=== PATIENT | male | born 1995 | race Caucasian/White ===

== ENCOUNTER 2023-03-05 09:58 | Outpatient (OUT) | payer OTHER, SELFPAY ==
--- NOTE | 2023-03-05 12:01 | CA_ITS ---
Patient: PARI ALEGRIA Exam Date: 03/05/2023 : 1995 Gender:M Ordering : LEROY APARICIO [facility] Admission #: [id number] Family : Order #: [id number] CLICK HERE TO VIEW EXAM ECHOCARDIOGRAM REPORT PROCEDURE: CA ECHO DOPPLER COMPLETE INDICATIONS: SYNCOPE AND COLLAPSE, smoker COMPARISON: None. DESCRIPTION: COMPLETE ECHOCARDIOGRAM Real-time transthoracic echocardiography with 2D, M-mode, spectral and color flow Doppler performed. QUALITY: Technical quality was good. LEFT VENTRICLE: Normal chamber size. Mild concentric left ventricular hypertrophy. LV EF: Global left ventricular systolic function is normal; visually estimated ejection fraction is 60 to 65%. No wall motion abnormalities. DIASTOLIC: Normal diastolic function. ATRIAL SEPTUM: Visually appears intact. LEFT ATRIUM: Normal chamber size. RIGHT ATRIUM: Normal chamber size. RIGHT VENTRICLE: Normal chamber size. Normal right ventricular systolic function. TRICUSPID VALVE: Normal mobility and thickness. No regurgitation. Unable to assess right-sided pressures due to lack of measurable tricuspid regurgitation. MITRAL VALVE: Normal mobility and thickness. No evidence of mitral valve stenosis. There is no mitral annular calcification. Trivial mitral regurgitation. AORTIC VALVE: Poorly seen; probably trileaflet. No visible sclerosis. Normal leaflet mobility. No evidence of aortic valve stenosis. No aortic regurgitation. AORTIC ROOT: Normal diameter and appearance. PULMONIC VALVE: Normal thickness and mobility. No stenosis. No regurgitation. PERICARDIUM: No evidence of pericardial effusion. IVC: Collapses with inspirations. IVC is normal in size. CONCLUSION: Global left ventricular systolic function is normal; visually estimated ejection fraction is 60 to 65%. Normal diastolic function. Right ventricle is normal in size and systolic function. No significant valvular abnormalities. Adult Echocardiography Procedure Report Left Ventricle LVEDD (3.7 - 5.6 cm): 4.10 cm LVESD (2.2 - 4.0 cm): 2.74 cm LVIVS thickness (0.6 - 1.2 cm): 1.18 cm LVPW thickness (0.5 - 1.0 cm): 1.10 cm e': 0.19 m/s E - e': 4.44 LVOT Max Gradient: 4.63 mm[Hg] LVOT Area (cm2): 1.08 m/s Peak Velocity (LVOT): 1.08 m/s Mean Velocity (LVOT): 0.78 m/s LVOT Diameter 2.33 cm Left Atrium LA Volume Index (2D A2C): 32.51 ml/m2 Left Atrium Systolic Dimension: 4.42 cm Mitral Valve MV E to A Ratio: 1.16 Mitral Valve A-Wave Peak Velocity: 0.73 m/s Mitral Valve E-Wave Peak Velocity: 0.85 m/s Right Ventricle Aorta AO Root Diam: 3.33 cm Aortic Valve AoV Area (Peak Juan): 3.44 cm2, 3.44 cm2 AoV Area (VTI): 3.23 cm2, 3.23 cm2 Peak Velocity(Antegrade Flow): 1.34 m/s Peak Gradient(Antegrade Flow): 7.17 mm[Hg] Mean Velocity(Antegrade Flow): 0.91 m/s Mean Gradient(Antegrade Flow): 3.86 mm[Hg] Velocity Time Integral: 30.11 cm Tricuspid Valve Peak Velocity (Regurgitant Flow): 2.21 m/s Pulmonic Valve Mean Gradient: 2.28 mm[Hg] Mean Velocity: 0.70 m/s Peak Velocity: 1.07 m/s, 1.29 m/s Peak Gradient: 6.65 mm[Hg], 4.60 mm[Hg] Right Atrium Right Atrium Systolic Pressure: 48.71 ml, 48.71 ml Dictated by: Chasity Meneses M.D. on 03/05/2023 at 14:34 Approved by: Chasity Meneses M.D. on 03/05/2023 at 14:37
== END 2023-03-05 09:59 | disposition home or self-care (01) ==
LOC: CARD 09:58
PROVIDERS: PCP Family Medicine; Visit Provider Nurse Practitioner Family
DX: R55 Syncope and collapse (principal)
CPT/HCPCS: 93306

== ENCOUNTER 2023-06-15 13:28 | Emergency (ER) | payer OTHER, SELFPAY ==
[2023-06-15 13:30] VITALS: BP 157/86; PULSE 91; RESP 20; TEMP 36.6; O2SAT 99; BMI 35.4
--- OUTSIDE RECORDS SUMMARY | 2023-06-15 13:37 | XMS_ITS | CCD ---
Author Name Unknown Address [address] [place] [address] Organization [facility] Care Team Providers Care Material Processor Name Role Phone Jose Parker Unavailable Unavailable Becca Hinson Unavailable Unavailable [place], Samra Lulu Unavailable Unavai lable [place], Samra Lulu Unavailable Unavai lable Becca Hinson Unavailable Unavailable [place], Samra Lulu Unavailable Unavai lable Becca Hinson Unavailable Unavailable Becca Hinson Unavailable Unavailable [place], Samra Lulu Unavailable Unavai lable [place], Samra Lulu Unavailable Unavai lable [place], Samra Lulu Unavailable Unavai lable [place], Samra Lulu Unavailable Unavai lable UNKNOWN, PCP Unavailable Unavailable Becca Hinson Unavailable Unavailable [place], Jessica Unavailable Unavailable UNKNOWN, PCP Unavailable Unavailable Becca Hinson Unavailable Unavailable [place], Samra Lulu Unavailable Unavai lable Becca Hinson Unavailable Unavailable [place], Samra Lulu Unavailable Unavai lable Becca Hinson Unavailable Unavailable UNKNOWN, PCP Unavailable Unavailable Becca Hinson Unavailable Unavailable [place], Samra Lulu Unavailable Unavai lable Shabbir Bright Unavailable DR REGAN LR V Consulting Unavailable KEVIN AYALA Admitting Unavailable KEVIN AYALA Attending Unavailable DR BECCA GALAVIZ Primary Care Unavailable KEVIN AYALA Consulting Unavailable Medications Current Medications Medication Drug Class(es) Dates Sig (Normalized) Sig (Original) ibuprofen 800 mg oral tablet (2 sources) Nonsteroidal Anti-inflammatory Drug take 1 tablet by mouth three times daily at mealtime as needed Ibuprofen 800 MG 1 tablet with food or milk as needed Orally Three times a day Active Problems Active Problems Problem Classification Problem Date Documented Date Episodic/Chronic Asthma (1 source) Unspecified asthma, uncomplicated; Translations: [UNSPECIFIED ASTHMA UNCOMPLICATED] Onset: 08-21-2021 Chronic Esophageal disorders (3 sources) Gastroesophageal reflux disease; Translations: [GERD [Gastroesophageal reflux disease]] Onset: 08-21-2021 Chronic Medical examination/evaluati on (1 source) Encounter for examination of potential donor of organ and tissue; Translations: [Encounter for exam of potential donor of organ and tissue] Onset: 09-10-2017 Episodic Unclassified (2 sources) 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) Onset: 10-09-2017 Unclassified (2 sources) Encounter for exam of potential donor of organ and tissue / Z00.5(ICD-10) Onset: 09-10-2017 Past or Other Problems Problem Classification Problem Date Documented Da te Episodic/Chronic E Codes: Fall (1 source) Fall on same level from slipping, tripping and stumbling without subsequent striking against object, initial encounter; Translations: [FALL SAME LVL SLIP NO STRK OBJ INIT] Onset: 08-21-2021 Episodic Fracture of upper limb (3 sources) Other fractures of lower end of right radius, subsequent encounter for closed fracture with routine healing; Translations: [Nondisplaced fracture of pisiform, right wrist, initial encounter for closed fracture] Onset: 08-21-2021 Resolved: 09-25-2021 Episodic Other aftercare (1 source) Other halfway (current) drug therapy; Translations: [OTH [facility]CI CURRENT DRUG THERAPY] Onset: 08-21-2021 Episodic Other injuries and conditions due to external causes (3 sources) Unspecified injury of right wrist, hand and finger(s), initial encounter; Translations: [UNS INJ RT WRIST HAND FINGERS INIT] Onset: 08-20-2021 Episodic Residual codes; unclassified (1 source) Acquired absence of other specified parts of digestive tract; Translations: [ACQ ABSENCE OTH PART DIGESTV TRACT] Onset: 08-21-2021 Episodic Unclassified (1 source) Kidney donor; 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] Onset: 10-09-2017 Results Test Name Value Interpretation Reference Range Facil ity XR wrist RT 2Von 10-29-2021 XR wrist RT 2V [facility] Main [address] [address] XRay Report Signed Patient: Pari Alegria MR#: [id number] 99 : 1995 Acct:[id number] Age/Sex: 26 / M ADM Date: 10/29/21 Loc: [facility] Room: Type: REG CLI Attending Dr: Shabbir Bright MD Copies to: Shabbir Bright MD Ordering Provider: Shabbir Bright MD Date of Service: 10/29/21 XR/XR wrist RT 2V: Other closed fracture of distal end of right radius with rou XR wrist RT 2V 10/29/2021 10:26 AM SIGNS AND SYMPTOMS: Status post distal radius fracture, follow-up PROTOCOL: Frontal and lateral radiographs of the right wrist COMPARISON: 09/25/2021 FINDINGS: The radiocarpal joint and carpal rows are preserved. There is no acute displaced fracture. No dislocation. No significant soft tissue swelling. XR/XR wrist RT 2V IMPRESSION: No acute bony injury. Impression dictated by: Taiwo Multani M.D.10/29/2021 12:07 PM Dictation Location: [place] [address] Transcribed By: [facility] 10/29/21 1207 Dictated By: Taiwo Multani II, MD 10/29/21 1205 Signed By: 10/29/21 1207 [facility] XR wrist RT 2Von 09-25-2021 XR wrist RT 2V [facility] Main [place] [id number] XRay Report Signed Patient: Pari Alegria MR#: [id number] 99 : 1995 Acct:[id number] Age/Sex: 26 / M ADM Date: 09/25/21 Loc: [facility] Room: Type: REG CLI Attending Dr: Shabbir Bright MD Ordering Provider: Shabbir Bright MD Date of Service: 09/25/21 XR/XR wrist RT 2V: Other closed fracture of distal end of right radius with rou Copies to: Shabbir Bright MD RIGHT WRIST - 2 views CLINICAL HISTORY: Follow-up right distal radius fracture COMPARISON: Right wrist 09/04/2021 FINDINGS: No focal soft tissue abnormality. No definite acute bony process is seen. Carpal bones appear unremarkable. XR/XR wrist RT 2V IMPRESSION: NO DEFINITE ACUTE BONY PROCESS IS SEEN. Impression dictated by: Good Bennett Jr., D.OServando09/25/2021 11:49 AM Dictation Location: RADIO-PC-11 Transcribed By: [facility] 09/25/21 1149 Dictated By: Good Bennett Jr, DO 09/25/21 1146 Signed By: 09/25/21 1149 [facility] XR wrist RT 2Von 09-04-2021 XR wrist RT 2V [facility] [place] [address] XRay Report Signed Patient: Pari Alegria MR#: [id number] 99 : 1995 Acct:[id number] Age/Sex: 25 / M ADM Date: 09/04/21 Loc: [facility] Room: Type: [facility] Attending Dr: Shabbir Bright MD Ordering Provider: Shabbir Bright MD Date of Service: 09/04/21 XR/XR wrist RT 2V: Other closed fracture of distal end of right radius with rou Copies to: Shabbir Bright MD XR wrist RT 2V 09/04/2021 8:10 AM SIGNS AND SYMPTOMS: Other closed fracture of distal end of right radius, follow-up PROTOCOL: Frontal and lateral radiographs of the right wrist COMPARISON: 08/20/2021 FINDINGS: The radiocarpal joint and carpal rows are preserved. There is no evidence of fracture or dislocation. No significant soft tissue swelling. XR/XR wrist RT 2V IMPRESSION: No acute or healing bony injuries are noted. Impression dictated by: Taiwo Multani M.D.09/04/2021 8:59 AM Dictation Location: RADIO-PC-13 Transcribed By: [facility] 09/04/21 0859 Dictated By: Taiwo Multani II, MD 09/04/21 0857 Signed By: 09/04/21 0859 [facility] WEST NILE ABS- IGG, IGMon WEST NILE AB IGG <1.30 Normal [facility] Comment on above: Performed By: #### A APRIL ####[facility] [place] [address] WEST NILE AB IGM <0.90 Normal [facility] Comment on above: Result Comment: REFE RENCE RANGE: IgG <1.30 IgM <0.90.INTERPRETIVE CRITERIA IgG: <1.30 Antibody not detected 1.30 - 1.49 Equivocal >=1.50 Antibody detected. IgM: <0.90 Antibody not detected 0.90 - 1.10 Equivocal >1.10 Antibody detected.West Nile virus (WNV) IgM is usually detectablein serum specimens from WNV-infected patients atthe time of clinical presentation. Because serumIgM antibody may persist for more than a year insome patients, its presence may indicate WNVinfection in the previous year and be unrelatedto the current clinical presentation.West Nile IgG antibodies are often not detectableuntil day 4 or 5 of illness. In a patient who isIgM positive but IgG negative, a convalescentphase specimen obtained 7 to 14 days after theinitial specimen should be tested to document IgGseroconversion.Antibodies induced by other flavivirus infections(e.g. Dengue virus, [place]ominee encephalitis virus)may show cross-reactivity with WNV. Performed By: #### A APRIL ####[facility] [id number] QUANTIFERON TB GOLDon 2017 MITOGEN NIL 5.97 IU/mL Normal [facility] Comment on above: Performed By: #### A APRIL ####[facility] [place] [address] NIL 0.48 IU/mL Normal [facility] Comment on above: Performed By: #### A APRIL ####[facility] [id number] QUANTIFERON TB GOLD Negative Normal Negative [facility] Comment on above: Result Comment: Nega tive test result. M. tuberculosis complexinfection unlikely. Performed By: #### A APRIL ####[facility] [id number] TB ANTIGEN NIL <0.00 Normal [facility] Comment on above: Result Comment: The Nil tube value is used to determine if the patienthas a preexisting immune response which could cause afalse-positive reading on the test.In order for a test to be valid, the Nil tube must havea value of <=8.0 IU/mL.The Mitogen control tube is used to assure the patienthas a healthy immune status and also serves as acontrol for correct blood handling and incubation.It is used to detect false-negative readings. Themitogen tube must have a gamma interferon value>= 0.5 IU/mL higher than the value of the Nil tube.The TB Antigen tube is coated with the M tuberculosisspecific antigens. For a test to be considered positivethe TB antigen tube value minus the Nil tube value mustbe >=0.35 IU/mL.Data on the performance of the test in childrenyounger than 5 years of age are limited, and the [facility]ises that caution is warranted when using the assayin children aged <5 years (MMWR 2009; 59 (RR-05):1-25).For additional information, please refer to:http://education.HashTip.Wickr/faq/QFT(This link is being provided for informational/educational purposes only). Performed By: #### A APRIL ####[facility] [place] [address] DONOR HEPATITIS B SURFACE AG on 10-10-2017 DONOR HEPATITIS B SURFACE AG Negative Normal Negative [facility] Comment on above: Result Comment: Test performed with Portillo Prism HBsAg kit. Performed By: #### F EVA ####[facility] [address] DONOR HEPATITIS C ABon 10-10 DONOR HEPATITIS C AB Negative Normal Negative [facility] Comment on above: Result Comment: Test performed with Portillo Prism HCV kit. Performed By: #### A APRIL ####[facility] [address] BA CTA ABDOMEN PELVIS WITH C ONT INCL NON CONT IMAGE W POST PROCon 10-09-2017 BA CTA ABDOMEN PELVIS WITH CONT INCL NON CONT IMAGE W POST PROC Name: PARI ALEGRIA STUDY:CTA ABDOMEN PELVIS WITH CONT INCL NON CONT IMAGE W POST PROC;10/09/2017 9:31 am INDICATION:Signs/Sympt oms: Kidney donor evaluation. COMPARISON:None. ORDERING CLINICIAN:SAMRA FLEMING TECHNIQUE:Noncontrast axial images were acquired through the abdomen andpelvis. Contiguous axial CT images were acquired through the abdomenand pelvis following the administration of 90 mL Optiray 350intravenous contrast. Sagittal and coronal images werereconstructed. Maximum intensity projection and three dimensionalimages were reconstructed. DOSE: 4,067 mGy x cm FINDINGS: CTA:Suprarenal Aorta: The suprarenal aorta is patent and normal incaliber. The celiac artery and superior mesenteric artery patent withnormal origin, caliber, and branching. Right Renal artery: Single right renal artery is widely patent andnormal in caliber. Left Renal artery: Single left renal artery is widely patent andnormal in caliber. Infrarenal Aorta: The infrarenal aorta is patent and normal incaliber. The inferior mesenteric artery is patent and unremarkable.The bilateral common iliac, internal and external iliac, commonfemoral, and origins of the superficial and profunda femoral arteriesare patent and without stenosis. CT ABDOMEN: The lung bases are clear. There is no pleural effusion. The liver is normal in size and appearance. No focal hepatic lesionsare identified. The patient is status post cholecystectomy. There isno intra or extrahepatic biliary dilatation. The spleen pancreas andbilateral adrenal glands are within normal limits. The kidneysenhance symmetrically on the arterial phase and delayed images. Thereis early excretion of contrast into the renal collecting systemsbilaterally on the delayed images. No radiopaque stones orhydronephrosis. The right kidney measures up to 10.6 cm in length onsagittal image 86 and the left kidney measures up to 10.7 cm inlength on sagittal image 152. The stomach, small bowel, and colon arenormal caliber and without evidence of wall thickening orabnormality. There is no free air free fluid within the abdomen.There are scattered small mesenteric lymph nodes, none of which arepathologically enlarged by size criteria. There is no free air freefluid within the abdomen. CT PELVIS: The urinary bladder is normally distended andunremarkable. The prostate and seminal vesicles are unremarkable.There is no pelvic free fluid. No pathologic pelvic or inguinallymphadenopath y. IMPRESSION:1. Normal CTA of the abdomen and pelvis. Single bilateral renalarteries are widely patent.2. Normal CT evaluation of the bilateral kidneys. The right kidneymeasures up to 10.6 cm in length and the left kidney measures up to10.7 cm in length.Electronically signed by: CORRIE SENIOR MD Normal [facility] ABO/RH GROUP TESTon 10-09-19 18 ABO TYPE O Normal [facility] Comment on above: Performed By: #### F LAUT ####[facility] [address] RH TYPE Positive Normal [facility] Comment on above: Performed By: #### F LAUT ####[facility] [place] [address] CBC AND DIFFERENTIALon 10-08 % AUTOMATED IMMATURE GRAN 0.4 % Normal 0.0 - 0.9 [facility] Comment on above: Result Comment: Perc ent differential counts (%) should be interpreted in the context of the absolute cell counts (cells/L). Performed By: #### C BCDF ####[facility] [place] [address] % NEUTROPHIL 41.1 % Normal 40.0 - 80.0 [facility] Comment on above: Performed By: #### C BCDF ####[facility] [place] [address] Basophils/100 WBC Auto (Bld) 0.04 x10E9/L Normal 0.00 - 0.10 [facility] Comment on above: Performed By: #### C BCDF ####[facility] [place] [address] Basophils/100 WBC Auto (Bld) 0.5 % Normal 0.0 - 2.0 [facility] Comment on above: Performed By: #### C BCDF ####[facility] [place] [address] Eosinophils 0.45 10*3/uL Normal 0.00 - 0.70 [facility] Comment on above: Performed By: #### C BCDF ####[facility] [place] [address] Eosinophils/100 leukocytes 6.0 % Normal 0.0 - 6.0 [facility] Comment on above: Performed By: #### C BCDF ####[facility] [place] [address] Erythrocyte distribution width Auto Ratio (RBC) 12.0 % Normal 11.5 - 14.5 [facility] Comment on above: Performed By: #### C BCDF ####[facility] [place] [address] Erythrocytes (RBC) 5.35 x10E12/L Normal 4.50 - 5.90 [facility] Comment on above: Performed By: #### C BCDF ####[facility] [place] [address] Hematocrit (HCT) 48.6 % Normal 41.0 - 52.0 [facility] Comment on above: Performed By: #### C BCDF ####[facility] [place] [address] Hemoglobin mass conc (Bld) 16.1 g/dL Normal 13.5 - 17.5 [facility] Comment on above: Performed By: #### C BCDF ####[facility] [place] [address] Lymphocytes 3.21 10*3/uL Normal 1.20 - 4.80 [facility] Comment on above: Performed By: #### C BCDF ####[facility] [place] [address] Lymphocytes/100 leukocytes 42.7 % Normal 13.0 - 44.0 [facility] Comment on above: Performed By: #### C BCDF ####[facility] [place] [address] MCHC mass conc (RBC) 33.1 g/dL Normal 32.0 - 36.0 [facility] Comment on above: Performed By: #### C BCDF ####[facility] [place] [address] MCV 91 fL Normal 80 - 100 [facility] Comment on above: Performed By: #### C BCDF ####[facility] [place] [address] Monocytes 0.70 10*3/uL Normal 0.10 - 1.00 [facility] Comment on above: Performed By: #### C BCDF ####[facility] [place] [address] Monocytes/100 leukocytes 9.3 % Normal 2.0 - 10.0 [facility] Comment on above: Performed By: #### C BCDF ####[facility] [place] [address] Neutrophils 3.08 10*3/uL Normal 1.20 - 7.70 [facility] Comment on above: Performed By: #### C BCDF ####[facility] [place] [address] Nucleated erythrocytes 0.0 /100 WBC Normal 0.0-0.0 [facility] Comment on above: Performed By: #### C BCDF ####[facility] [address] Platelets 221 10*3/uL Normal 150 - 450 [facility] Comment on above: Performed By: #### C BCDF ####[facility] [place] [address] WBC (Leukocytes) 7.5 10*3/uL Normal 4.4 - 11.3 [facility] Comment on above: Performed By: #### C BCDF ####[facility] [place] [address] CMV IGG AND IGM ABon 05-23-2 018 CMV IGM AB Negative Normal NEGATIVE [facility] Comment on above: Result Comment: RESU LTS WERE OBTAINED WITH THE IMMULITE 2000 CMV IGM CHEMILUMINESCENT METHOD AND CANNOT BE INTERCHANGED WITH OTHER TESTING METHODS. Immunodeficiency may impair a CMV specific IgM response. Samples collected early in CMV infection may not demonstrate IgM sera conversion. Performed By: #### F EVA ####[facility] [place] [address] CMV IGG AB 8.6 INDEX Abnormal [facility] Comment on above: Result Comment: RESU LTS WERE OBTAINED WITH THE IMMULITECMV IGG CHEMILUMINESCENT METHOD.THE MAGNITUDE OF THE MEASURED RESULT, ABOVETHE CUT-OFF, IS NOT INDICATIVE OF THETOTAL AMOUNT OF ANTIBODY PRESENT.NEGATIVE: < 0.9EQUIVOCAL: 0.9 - 1.0POSITIVE: >=1.1 Performed By: #### F EVA ####[facility] [place] [address] COAGULATION SCREENon 018 aPTT 30 s Normal 25 - 36 [facility] Comment on above: Result Comment: THE APTT IS NO LONGER USED FOR MONITORING UNFRACTIONATED HEPARIN THERAPY. FOR MONITORING HEPARIN THERAPY, USE THE HEPARIN ASSAY. Performed By: #### D N2SYLVESTER ####[facility] [place] [address] INR Coag RelTime (PPP) 1.0 {INR} Normal 0.9 - 1.1 [facility] Comment on above: Performed By: #### D N2SYLVESTER ####[facility] [place] [address] Prothrombin time (PT) Coag time (PPP) 11.1 s Normal 9.8 - 12.7 [facility] Comment on above: Performed By: #### D N2LR ####[facility] [place] [address] COMPREHENSIVE PANELon 2017 Alanine aminotransferase (ALT) 49 U/L Normal 10 - 52 [facility] Comment on above: Result Comment: Lanette ents treated with Sulfasalazine may generate falsely decreased results for ALT. Performed By: #### D N2LR ####[facility] [place] [address] Albumin 5.1 g/dL High 3.4 - 5.0 [facility] Comment on above: Performed By: #### D N2LR ####[facility] [place] [address] Alkaline phosphatase (ALP) 85 U/L Normal 33 - 120 [facility] Comment on above: Performed By: #### D N2LR ####[facility] [place] [address] Anion gap 14 mmol/L Normal 10 - 20 [facility] Comment on above: Performed By: #### D N2LR ####[facility] [place] [address] Aspartate aminotransferase (AST) 25 U/L Normal 9 - 39 [facility] Comment on above: Performed By: #### D N2LR ####[facility] [place] [address] Bicarbonate (HCO3) 27 mmol/L Normal 21 - 32 [facility] Comment on above: Performed By: #### D N2LR ####[facility] [address] Bilirubin (total) 0.8 mg/dL Normal 0.0 - 1.2 [facility] Comment on above: Performed By: #### D N2LR ####[facility] [place] [address] Calcium 10.1 mg/dL Normal 8.6 - 10.6 [facility] Comment on above: Performed By: #### D N2LR ####[facility] [place] [address] Chloride 101 mmol/L Normal 98 - 107 [facility] Comment on above: Performed By: #### D N2LR ####[facility] [address] Creatinine 0.83 mg/dL Normal 0.50 - 1.30 [facility] Comment on above: Performed By: #### D N2LR ####[facility] [place] [address] eGFR (non-black) mL/min/{1.73_m2} Normal >60 [facility] Comment on above: Result Comment: CALC ULATIONS OF ESTIMATED GFR ARE PERFORMED USING THE MDRD STUDY EQUATION FOR THE IDMS-TRACEABLE CREATININE METHODS. CLIN CHEM 2007;53:766-72 Performed By: #### D N2LR ####[facility] [place] [address] Glucose mass conc 100 mg/dL High 74 - 99 [facility] Comment on above: Performed By: #### D N2LR ####[facility] [place] [address] Potassium molar conc 4.2 mmol/L Normal 3.5 - 5.3 [facility] Comment on above: Performed By: #### D N2LR ####[facility] [address] Protein 7.5 g/dL Normal 6.4 - 8.2 [facility] Comment on above: Performed By: #### D N2LR ####[facility] [place] [address] Sodium 138 mmol/L Normal 136 - 145 [facility] Comment on above: Performed By: #### D N2LR ####[facility] [place] [address] Urea nitrogen 16 mg/dL Normal 6 - 23 [facility] Comment on above: Performed By: #### D N2LR ####[facility] [place] [address] CREAT CLEARANCEon 10-08-2017 Creatinine 182 mL/min High 70 - 135 [facility] Comment on above: Performed By: #### F LAUT ####[facility] [place] [address] CREATININE,URINE 77.9 mg/dL Normal [facility] Comment on above: Performed By: #### F LAUT ####[facility] [place] [address] URINE VOLUME 2723 mL Normal [facility] Comment on above: Performed By: #### F LAUT ####[facility] [id number] Creatinine 0.81 mg/dL Normal 0.50 - 1.30 [facility] Comment on above: Performed By: #### F LAUT ####[facility] [address] eGFR (non-black) mL/min/{1.73_m2} Normal >60 [facility] Comment on above: Result Comment: CALC ULATIONS OF ESTIMATED GFR ARE PERFORMED USING THE MDRD STUDY EQUATION FOR THE IDMS-TRACEABLE CREATININE METHODS. CLIN CHEM 2007;53:766-72 Performed By: #### F LAUT ####[facility] [place] [address] COLLECTION PERIOD 24 hr Normal [facility] [place] Comment on above: Performed By: #### F LAUT ####[place] [id number] [id number] DRUG SCREEN,URINEon 10-09-19 18 AMPHETAMINE SCREEN,U Negative Normal NEGATIVE [facility] Comment on above: Result Comment: CUTO FF LEVEL: 500 NG/ML Cross-reactivity has been reported with high concentrations of the following drugs: buproprion, chloroquine, chlorpromazine, ephedrine, mephentermine, fenfluramine, phentermine, phenylpropanolamine, pseudoephedrine, and propranolol. Performed By: #### D N2LR ####[facility] [place] [address] BARBITURATES SCREEN,U Negative Normal NEGATIVE [facility] Comment on above: Result Comment: CUTO FF LEVEL: 200 NG/ML Performed By: #### D N2LR ####[facility] [address] BENZODIAZEPINES SCREEN,U Negative Normal NEGATIVE [facility] Comment on above: Result Comment: CUTO FF LEVEL: 200 NG/ML Performed By: #### D N2LR ####[facility] [id number] CANNABINOIDS SCREEN,U Positive Abnormal NEGATIVE [facility] Comment on above: Result Comment: CUTO FF LEVEL: 50 NG/ML Performed By: #### D N2LR ####[facility] [place] [address] COCAINE METABOLITE SCREEN,U Negative Normal NEGATIVE [facility] Comment on above: Result Comment: CUTO FF LEVEL: 150 NG/ML Performed By: #### D N2LR ####[facility] [place] [address] DRUG SCREEN COMMENT SEE BELOW Normal [facility] Comment on above: Result Comment: Drug screen results are presumptive and should not be used to assesscompliance with prescribed medication. Contact the performing [facility] to add-on definitive confirmatory testing if clinicallyindicated..Toxicology screening results are reported qualitatively. The concentrationmust be greater than or equal to the cutoff to be reported as positive. Theconcentration at which the screening test can detect an individual drug ormetabolite varies. The absence of expected drug(s) and/or drug metabolite(s)may indicate non-compliance, inappropriate timing of specimen collectionrelative to drug administration, poor drug absorption, diluted/adulteratedurine, or limitations of testing. For medical purposes only; not valid forforensic use..Interpretive questions should be directed to the laboratory medicaldirectors. Performed By: #### D N2LR ####[facility] [place] [address] METHADONE SCREEN,U Negative Normal NEGATIVE [facility] Comment on above: Result Comment: CUTO FF LEVEL: 150 NG/ML The metabolite C-safhk-yhrditzohmxobg (LAAM) is not detected by this method in concentrations that would be found in the urine of patients on LAAM therapy. Performed By: #### D N2LR ####[facility] [place] [address] OPIATES SCREEN,U Negative Normal NEGATIVE [facility] Comment on above: Result Comment: CUTO FF LEVEL: 300 NG/ML The opiate screen does not detect fentanyl, meperidine, or tramadol. Oxycodone is not consistently detected (refer to Oxycodone Screen, Urine result). Performed By: #### D N2LR ####[facility] [address] OXYCODONE SCREEN,U Negative Normal NEGATIVE [facility] Comment on above: Result Comment: CUTO FF LEVEL: 100 NG/ML This test will accurately detect both oxycodone and oxymorphone. Performed By: #### D N2LR ####[facility] [address] PCP SCREEN,U Negative Normal NEGATIVE [facility] Comment on above: Result Comment: CUTO FF LEVEL: 25 NG/ML Cross-reactivity has been reported with dextromethorphan. Performed By: #### D N2LR ####[facility] [id number] EBV PANELon 10-08-2017 VCA IGM ANTIBODY Negative Normal NEGATIVE [facility] Comment on above: Performed By: #### F LAUT ####[facility] [place] [address] EBV EA-D IGG ANTIBODY Negative Normal NEGATIVE [facility] Comment on above: Performed By: #### F LAUT ####[facility] [id number] EBV INTERPRETATION SEE BELOW Normal [facility] Comment on above: Result Comment: . EB V INTERPRETATION CHART. VCA-IGG VCA-IGM NA-IGG EA-IGG. PRIMARY ACUTE +/- +/- - +/-LATE ACUTE + +/- +/- +/-RECOVERING + - - +PREVIOUS INFECTION + - +/- - Performed By: #### F LAUT ####[facility] [address] EBV NA-1 IGG ANTIBODY Positive Abnormal NEGATIVE [facility] Comment on above: Performed By: #### F LAUT ####[facility] [address] VCA IGG ANTIBODY Positive Abnormal NEGATIVE [facility] Comment on above: Performed By: #### F LAUT ####[facility] [address] GLUCOSE,FASTINGon 10-08-2017 Glucose mass conc 99 mg/dL Normal 74 - 99 [facility] [place] Comment on above: Result Comment: INCR EASED RISK FOR DIABETES 100-125 mg/dL DIAGNOSTIC OF DIABETES >=126 mg/dL Diagnosis of diabetes mellitus requires confirmation of an abnormal result by repeat testing. [place] [employer], Diabetes Care; 33(Supp 1)May 2009. Performed By: #### G LUCF ####[facility] [address] HEMOGLOBIN A1Con 10-08-2017 Glucose mass conc 94 mg/dL Normal [facility] [place] Comment on above: Performed By: #### F EVA ####[facility] [address] Hemoglobin A1c/Hemoglobin.total mass fraction (Bld) 4.9 % Normal [facility] Comment on above: Result Comment: Diag nosis of Diabetes-Adults Non-Diabetic: < or = 5.6% Increased risk for developing diabetes: 5.7-6.4% Diagnostic of diabetes: > or = 6.5%. Monitoring of Diabetes Age (y) Therapeutic Goal (%) Adults: >18 <7.0 Pediatrics: 13-18 <7.5 7-12 <8.0 0- 6 7.5-8.5 [place] [employer]. Diabetes Care 33(S1), May 2009. Performed By: #### F EVA ####[facility] [address] HEPATITIS B CORE AB-TOTALon 10-08-2017 HEP. B CORE AB-TOTAL NONREACTIVE Normal NONREACTIVE [facility] Comment on above: Result Comment: Lanette ents receiving more than 5 mg/day of biotin may have interference in test results. A sample should be taken no sooner than eight hours after previous dose. Contact [phone] for additional information. Performed By: #### D N2LR ####[facility] [place] [address] Lab Spec[address] Source Normal [facility] Comment on above: Performed By: #### D N2LR ####[facility] [place] [address] HEPATITIS B SURF ABon 2017 HEP B SURF AB 5.3 mIU/mL Normal <10 [facility] Comment on above: Result Comment: INTE RPRETIVE CRITERIA:<10 mIU/mL....NONREACTIVE>=10 mIU/mL...REACTIVE. Patients receiving more than 5 mg/day of biotin may have interference in test results. A sample should be taken no sooner than eight hours after previous dose. Contact [phone] for additional information. Performed By: #### D N2LR ####[facility] [place] [address] LIPID PANEL (CORONARY RISK 2 )on 10-08-2017 Cholesterol 188 mg/dL Normal 0 - 199 [facility] Comment on above: Result Comment: . AG E DESIRABLE BORDERLINE HIGH HIGH 0-19 Y 0 - 169 170 - 199 >/= 200 20-24 Y 0 - 189 190 - 224 >/= 225 >24 Y 0 - 199 200 - 239 >/= 240 All ranges are based on fasting samples. Specific therapeutic targets will vary based on patient-specific cardiac risk.. Pediatric guidelines reference:Pediatrics 2011, 128(S5). Adult guidelines reference: NCEP ATPIII Guidelines, MEHDI 2001, 258:2486-97. Venipuncture immediately after or during the administration of Metamizole may lead to falsely low results. Testing should be performed immediately prior to Metamizole dosing. Performed By: #### D N2LR ####[facility] [place] [address] Cholesterol in VLDL mass conc 27 mg/dL Normal 0 - 40 [facility] Comment on above: Performed By: #### D N2LR ####[facility] [place] [address] Cholesterol to HDL Ratio 3.4 {ratio} Normal [facility] Comment on above: Result Comment: REF VALUESDESIRABLE < 3.4HIGH RISK > 5.0 Performed By: #### D N2LR ####[facility] [address] HDL Cholesterol 54.7 mg/dL Normal [facility] [place] Comment on above: Result Comment: . AG E VERY LOW LOW NORMAL HIGH 0-19 Y < 35 < 40 40-45 ---- 20-24 Y ---- < 40 >45 ---- >24 Y ---- < 40 40-60 >60. Performed By: #### D N2LR ####[facility] [place] [address] LDL Cholesterol 107 mg/dL Normal 0 - 119 [facility] [place] Comment on above: Result Comment: . LIZZETTE MOULTON AGE DESIRABLE OPTIMAL HIGH HIGH VERY HIGH 0-19 Y 0 - 109 --- 110-129 >/= 130 ---- 20-24 Y 0 - 119 --- 120-159 >/= 160 ---- >24 Y 0 - 99 100-129 130-159 160-189 >/=190. Performed By: #### D N2LR ####[facility] [place] [address] NON-HDL CHOLESTEROL 133 mg/dL Normal 0 - 149 [facility] Comment on above: Result Comment: AGE DESIRABLE BORDERLINE HIGH HIGH VERY HIGH 0-19 Y 0 - 119 120 - 144 >/= 145 >/= 160 20-24 Y 0 - 149 150 - 189 >/= 190 ---- >24 Y 30 MG/DL ABOVE LDL CHOLESTEROL GOAL. Performed By: #### D N2LR ####[facility] [place] [address] Triglyceride 133 mg/dL Normal 0 - 149 [facility] Comment on above: Result Comment: . AG E DESIRABLE BORDERLINE HIGH HIGH VERY HIGH 0 D-90 D 19 - 174 ---- ---- ----91 D- 9 Y 0 - 74 75 - 99 >/= 100 ---- 10-19 Y 0 - 89 90 - 129 >/= 130 ---- 20-24 Y 0 - 114 115 - 149 >/= 150 ---- >24 Y 0 - 149 150 - 199 200- 499 >/= 500. Venipuncture immediately after or during the administration of Metamizole may lead to falsely low results. Testing should be performed immediately prior to Metamizole dosing. Performed By: #### D N2LR ####[facility] [address] PHOSPHORUSon 10-08-2017 Phosphate 2.8 mg/dL Normal 2.5 - 4.9 [facility] Comment on above: Result Comment: The performance characteristics of phosphorus testing in heparinized plasma have been validated by the individual laboratory site where testing is performed. Testing on heparinized plasma is not approved by the FDA; however, such approval is not necessary. Performed By: #### D N2LR ####[facility] [address] SYPHILIS IGGon 10-08-2017 SYPHILIS IGG NON REACTIVE Normal NONREACTIVE [facility] [place] Comment on above: Result Comment: Lanette ents receiving more than 5 mg/day of biotin may have interference in test results. A sample should be taken no sooner than eight hours after previous dose. Contact [phone] for additional information. Performed By: #### D N2LR ####[facility] [address] TH CHEST 2 VIEW PA AND LATon 10-08-2017 TH CHEST 2 VIEW PA AND LAT Name: PARI ALEGRIA STUDY:TH CHEST 2 VIEW PA AND LAT; 10/08/2017 10:48 am INDICATION:Signs/Sympt oms: Kidney donor evaluation. COMPARISON:None ORDERING CLINICIAN:SAMRA FLEMING FINDINGS:The cardiac silhouette size is within normal limits. There is nofocal consolidation, edema or pneumothorax. No sizeable pleuraleffusion. No acute osseous abnormality. IMPRESSION:No radiographic evidence of acute cardiopulmonary process. Electronically signed by: VIRAJ ROJAS MD Normal [facility] TOTAL PROTEIN, URINE SPOTon 10-08-2017 CREATININE,URINE 147.0 mg/dL Normal [facility] [place] Comment on above: Performed By: #### D N2LR ####[facility] [address] T. PROTEIN/CREAT RATIO 0.08 mg/mg Creat Normal [facility] Comment on above: Performed By: #### D N2LR ####[facility] [place] [address] TOTAL PROT,URINE SPOT 12 mg/dL Normal 0 - 12 [facility] Comment on above: Performed By: #### D N2LR ####[facility] [address] URIC ACIDon 10-08-2017 Urate 5.4 mg/dL Normal 4.0 - 7.5 [facility] Comment on above: Result Comment: Angi puncture immediately after or during the administration of Metamizole may lead to falsely low results. Testing should be performed immediately prior to Metamizole dosing. Performed By: #### D N2LR ####[facility] [address] URINALYSISon 10-08-2017 Bilirubin (total) Negative Normal NEGATIVE [facility] [place] Comment on above: Performed By: #### F LAUT ####[facility] [place] [address] BLOOD Negative Normal NEGATIVE [facility] Comment on above: Performed By: #### F LAUT ####[facility] [place] [address] Glucose mass conc Negative Normal NEGATIVE [facility] [place] Comment on above: Performed By: #### F LAUT ####[facility] [place] [address] pH of blood 7.0 [pH] Normal 5.0 - 8.0 [facility] Comment on above: Performed By: #### F LAUT ####[facility] [address] Protein Negative Normal NEGATIVE [facility] Comment on above: Performed By: #### F LAUT ####[facility] [place] [address] Urine, appearance CLEAR Normal CLEAR [facility] [place] Comment on above: Performed By: #### F LAUT ####[facility] [place] [address] Urine, color YELLOW Normal STRAW,YELLOW [facility] Comment on above: Performed By: #### F LAUT ####[facility] [place] [address] Urine, ketones presence Negative Normal NEGATIVE [facility] Comment on above: Performed By: #### F LAUT ####[facility] [place] [address] Urine, leukocyte esterase presence Negative Normal NEGATIVE [facility] Comment on above: Performed By: #### F LAUT ####[facility] [place] [address] Urine, nitrite presence Negative Normal NEGATIVE [facility] Comment on above: Performed By: #### F LAUT ####[facility] [place] [address] Urine, specific gravity 1.018 Normal 1.005 - 1.035 [facility] Comment on above: Performed By: #### F LAUT ####[facility] [address] Urine, urobilinogen <2.0 Normal 0.0 - 1.9 [facility] Comment on above: Performed By: #### F LAUT ####[facility] [address] URINE CULTURE,BACTERIALon URINE CULTURE,BACTERIAL PATIENT: PARI ALEGRIA LOCATION: [facility] BILL#: [id number] : 89 AGE: SEX: M ORDERED BY: LUCY FLEMING: URINE COLLECTED: 10/08/17 08:07ANTIBIOTICS AT DOLYL.: RECEIVED : 10/08/17 12:26SITE: Clean Catch/Voided R E S U L T S URINE CULTURE,BACTERIAL FINAL 10/09/17 06:52 NO SIGNIFICANT GROWTH. Normal [facility] Comment on above: Performed By: #### F LAUT ####[facility] [address] HLA-A,B,C LRon 09-10-2017 HLA-A LOCUS LR TYPE SEE COMMENT Normal [facility] Comment on above: Result Comment: HLA- A LOCUS, LOW RESOLUTION TYPE SEE SEPARATE REPORT. Performed By: #### D N1LR ####[facility] [address] HLA-B LOCUS LR TYPE SEE COMMENT Normal [facility] Comment on above: Result Comment: HLA- B LOCUS, LOW RESOLUTION TYPE SEE SEPARATE REPORT. Performed By: #### D N1LR ####[facility] [place] [address] HLA-C LOCUS LR TYPE SEE COMMENT Normal [facility] Comment on above: Result Comment: HLA- C LOCUS, LOW RESOLUTION TYPE SEE SEPARATE REPORT. Performed By: #### D N1LR ####[facility] [address] HLA-DPB1 HR TYPINGon 018 HLA-DPB1 HR TYPING SEE COMMENT Normal [facility] Comment on above: Result Comment: HLA- DPB1 HIGH RESOLUTION TYPING SEE SEPARATE REPORT. Performed By: #### D PBHR ####[facility] [address] HLA-DQB1 HR TYPINGon 018 HLA-DQB1 HR TYPING SEE COMMENT Normal [facility] Comment on above: Result Comment: HLA- DQB1 HIGH RESOLUTION TYPING SEE SEPARATE REPORT. Performed By: #### D QBHR ####[facility] [address] HLA-DRB1/3/4/5 AND DQB1 LR T YPINGon 09-10-2017 HLA-DRB1/3/4/5 & DQB1 LR TYPING SEE COMMENT Normal [facility] Comment on above: Result Comment: HLA- DRB1/3/4/5 AND DQB1 LOW RESOLUTION TYPING SEE SEPARATE REPORT. Performed By: #### D N2LR ####[facility] [address] ABO/RH GROUP TESTon 09-05-19 18 ABO TYPE O Normal [facility] Comment on above: Performed By: #### A APRIL ####[facility] [address] RH TYPE Positive Normal [facility] Comment on above: Performed By: #### A APRIL ####[facility] [address] AUTOCROSSMATCH, FLOWon 09-04 AUTOCROSSMATCH, FLOW Canceled Normal [facility] Comment on above: Order Comment: TEST AUTOCROSSMATCH, FLOW WAS CANCELLED, 09/04/2017 14:53 ?WRONG VISIT USED.. Performed By: #### F EVA ####[facility] [address] HLA-A,B,C LRon 09-04-2017 HLA-A LOCUS LR TYPE Canceled Normal [facility] Comment on above: Order Comment: TEST HLA-A,B,C LR WAS CANCELLED, 09/04/2017 14:53 ?WRONG VISIT USED.. Performed By: #### D N1LR ####[facility] [id number] HLA-B LOCUS LR TYPE Canceled Normal [facility] Comment on above: Order Comment: TEST HLA-A,B,C LR WAS CANCELLED, 09/04/2017 14:53 ?WRONG VISIT USED.. Performed By: #### D N1LR ####[facility] [id number] HLA-C LOCUS LR TYPE Canceled Normal [facility] Comment on above: Order Comment: TEST HLA-A,B,C LR WAS CANCELLED, 09/04/2017 14:53 ?WRONG VISIT USED.. Performed By: #### D N1LR ####[facility] [id number] HLA-DRB1/3/4/5 AND DQB1 LR T YPINGon 09-04-2017 HLA-DRB1/3/4/5 & DQB1 LR TYPING Canceled Normal [facility] Comment on above: Order Comment: TEST HLA-DRB1/3/4/5 AND DQB1 LR TYPING WAS CANCELLED, 09/04/2017 14:53 ?WRONGVISIT USED.. Performed By: #### D N2LR ####[facility] [place] [address] Vital Signs Date Time Vital Sign Value Performing Clinician Jayashree harmon 09-25-2021 09:45-0400 Body height 175.26 cm Shabbir Olexa Other [employer] Other 09-25-2021 09:45-0400 Body mass index (BMI) [Ratio] 33.81 kg/m2 Shabbir Olexa Other [employer] Other 09-25-2021 09:45-0400 Body weight 103.87 kg Shabbir Olexa Other [employer] Other Encounters Encounter Date Encounter Type Care Provider Facility Start: 09-25-2021 End: 09-25-2021 ambulatory Shabbir Olexa Other [employer] Other Start: 09-25-2021 Postop follow up visit related to original px Shabbir Olexa [facility] Start: 09-04-2021 End: 09-04-2021 ambulatory Shabbir Olexa Other [employer] Other Start: 09-04-2021 Postop follow up visit related to original px Shabbir Olexa [facility] Start: 08-20-2021 End: 08-20-[address] REGAN LR Facility: Start: 10-09-2017 Ambulatory PCP UNKNOWN Facility:U Start: 10-09-2017 Ambulatory Samra Lulu [facility] Facility:[facility] Start: 10-09-2017 Ambulatory Samra Lawson [facility] Facility:[facility] Start: 10-08-2017 Ambulatory Sahra Hong y:[facility] Start: 10-08-2017 Ambulatory Samra [facility] Facility:[facility] Start: 10-08-2017 Ambulatory Becca Akins ility:[facility] Start: 10-08-2017 Ambulatory Samra Fleming Facility:[facility] Start: 09-10-2017 Ambulatory Jose Johnson ty:[facility] Payers Date Payer Category Payer Unknown [id number] [id number] [id number] 1960 Unknown [id number] 1960 Unknown [id number] Self-pay Unknown [id number] Social History Date Type Detail Facility Unknown if ever smoked [employer] Other Sex Assigned At Sex Assigned At Bir th [employer] Other Evaluation note 09-25-2021 Note Date & Type Note Facility 09-25-2021 Evaluation note Encounter Date Diagnosis Assessment Notes September, Other closed fracture of distal end of right radius with routine healing, subsequent encounter (ICD-10 - S52.591D) Xrays were reviewed with patient in detail. Patient encouraged to work on gentle motion exercises. We will provide patient with a formal order for therapy. Patient will continue off of work until 11/02/2021. [employer] Other Evaluation note 09-04-2021 Note Date & Type Note Facility 09-04-2021 Evaluation note Encounter Date Diagnosis Assessment Notes Aug, Other closed fracture of distal end of right radius with routine healing, subsequent encounter (ICD-10 - S52.591D) Xrays were reviewed with patient in detail. Patient instructed to work on gentle motion exercises. Continue use of brace. Patient will continue off of work for now. [employer] Other Clinical Note 08-20-2021 Note Date & Type Note Facility 08-20-2021 Note PROCEDURE: XR WRIST RT MIN 3 V COMPARISON: None. HISTORY: Unspecified fall FINDINGS: BONES:Cortical discontinuity consistent with a small fracture along the lateral aspect of the fusiform seen best on images 2 and 3. No definite dislocation. SOFT TISSUES:Wrist soft tissue swelling EFFUSION:None visible. OTHER: Negative. IMPRESSION: Acute nondisplaced fracture lateral pisiform Electronically authenticated by: REGAN LR Date: 2021-08-20 13:14 [facility] [place] History general Narrative - Reported Note Date & Type Note Facility History general Narrative - Reported Type Surgical History cholecystectomy [employer] Other Summary Purpose Family History No Family History Records FoundNo Family History Records FoundNo Family History Records Found Advance Directives No Advanced Directives Records FoundNo Advanced Directives Records FoundNo Advanced Directives Records Found Additional Source Comments (unrecognized sect ion and content) No Status Records FoundNo Status Records FoundNo Status Records Found INFORMATION SOURCE (unrecogn ized section and content) DATE CREATED AUTHOR 11/09/2017 [facility] DATE CREATED AUTHOR AUTHOR'S ORGANIZ ATION 11/11/2021 [facility] DATE CREATED AUTHOR AUTHOR'S ORGANIZ ATION [facility] [facility] REAS[facility] FOR VISIT (unrecogniz ed section and content) Recheck Right WristRecheck R ight Wrist FOR RECORDS PERTAINING TO PATIENTS WHO ARE OR HAVE BEEN ENROLLED IN A CHEMICAL DEPENDENCY/SUBSTANCEABUSE PROGRAM, SOME INFORMATION MAY BE OMITTED. This clinical summary was aggregated from multiple sources. Caution should be exercised in using it in the provision of clinical care. This summary normalizes information from multiple sources, and as a consequence, information in this document may materially change the coding, format and clinical context of patient data. In addition, data may be omitted in some cases. CLINICAL DECISIONS SHOULD BE BASED ON THE PRIMARY CLINICAL RECORDS. [facility] [employer] [facility] provides no warranty or guarantee of the accuracy or completeness of information in this document.
--- NOTE | 2023-06-15 13:42 | ED.URI1 ---
HPI - URI/Sore Throat General Chief Complaint: Upper Respiratory Infection Stated Complaint: COUGH SOB CHEST CONGESTION Time Seen by Provider: 06/15/23 13:36 Source: patient History of Present Illness HPI Narrative: 27-year-old male presents to the emergency Department for cough and congestion. He's been sick for about three days. Other family members were ill as well but they're all better. He took a home Covid test and it was negative. No known fever. He has congestion in his chest and his head. Related Data Home Medications Medication Instructions Recorded Confirmed metoprolol tartrate 25 mg tablet mg 06/15/23 Previous Rx's Medication Instructions Recorded albuterol sulfate 90 mcg/actuation 2 inh inhalation Q4H PRN shortness 06/15/23 aerosol inhaler of breath or wheezing #8.5 grams benzonatate 100 mg capsule 100 mg PO TID PRN cough #20 caps 06/15/23 loratadine 5 mg-pseudoephedrine ER 1 tab PO Q12H PRN nasal congestion 06/15/23 120 mg tablet,extended #20 tabs release,12hr (Claritin-D 12 Hour) ondansetron 4 mg disintegrating 4 mg PO Q6H PRN nausea and 06/15/23 tablet vomiting #20 tabs Allergies Allergy/AdvReac Type Severity Reaction Status Date / Time No Known Drug Allergies Allergy Verified 06/15/23 13:34 Review of Systems ROS Narrative A ten point review of systems is negative except as noted above. Exam Narrative Exam Narrative: Nurses note and vital signs reviewed and patient is not hypoxic. General: The patient appears in no apparent respiratory distress. he coughs frequently Skin: Warm, dry, no pallor noted. There is no rash noted. Head: Normocephalic, atraumatic Eye: Normal conjunctiva, no drainage Ears, Nose, Mouth, and Throat: oral mucosa is moist. Nares patent. Cardiovascular: Regular Rate and Rhythm Respiratory: Patient is in no distress, no accessory muscle use, lungs are clear to auscultation, no wheezing, rales or rhonchi Back: non-tender GI: soft and nontender Musculoskeletal: The patient has no evidence of calf tenderness, no pitting edema, symmetrical pulses noted bilaterally Neurological: A&O, normal speech Psychiatric: Cooperative Constitutional Vital Signs, click to edit/add: Last Vital Signs Temp 98 F 06/15/23 13:30 Pulse 91 H 06/15/23 13:30 Resp 20 06/15/23 13:30 BP 157/86 H 06/15/23 13:30 Pulse Ox 99 06/15/23 13:30 O2 Del Method Room Air 06/15/23 13:30 Course Vital Signs Vital signs: Vital Signs Temperature 98 F 06/15/23 13:30 Pulse Rate 91 H 06/15/23 13:30 Respiratory Rate 20 06/15/23 13:30 Blood Pressure 157/86 H 06/15/23 13:30 Pulse Oximetry 99 06/15/23 13:30 Oxygen Delivery Method Room Air 06/15/23 13:30 Temperature 98 F 06/15/23 13:30 Pulse Rate 91 H 06/15/23 13:30 Respiratory Rate 20 06/15/23 13:30 Blood Pressure 157/86 H 06/15/23 13:30 Pulse Oximetry 99 06/15/23 13:30 Oxygen Delivery Method Room Air 06/15/23 13:30 MDM - URI/Sore Throat MDM Narrative Medical decision making narrative: He was offered testing but doesn't feel he needs it, he took a home Covid test. He'll be treated with albuterol, Zofran, Claritin and Tessalon. Treatment diagnosis and follow-up were discussed with the patient. My clinical impression is that this is viral. Antibiotic is not indicated. Differential Diagnosis Differential diagnosis: Likely upper respiratory infection, viral infection, influenza and other (Covid) Discharge Plan Discharge Chief Complaint: Upper Respiratory Infection Clinical Impression: Upper respiratory infection Patient Disposition: Home, Self-Care Time of Disposition Decision: 13:41 Condition: Good Mode of Transportation: Private Vehicle Prescriptions / Home Meds: New benzonatate 100 mg capsule 100 mg PO TID PRN (Reason: cough) Qty: 20 0RF Claritin-D 12 Hour 5-120 mg tablet extended release 12 hr 1 tab PO Q12H PRN (Reason: nasal congestion) Qty: 20 0RF albuterol sulfate 90 mcg/actuation HFA aerosol inhaler 2 inh inhalation Q4H PRN (Reason: shortness of breath or wheezing) Qty: 8.5 0RF ondansetron 4 mg tablet,disintegrating 4 mg PO Q6H PRN (Reason: nausea and vomiting) Qty: 20 0RF No Action metoprolol tartrate 25 mg tablet Instructions: Upper Respiratory Infection (ED), Viral Syndrome (ED) Stand Alone Forms: Portal Instructions Referrals: Gomez Hinson MD [Primary Care Provider] - 1 week
== END 2023-06-15 13:49 | disposition home or self-care (01) ==
PROVIDERS: Emergency Provider Emergency Medicine; PCP Family Medicine
DX: J06.9 Acute upper respiratory infection, unspecified (principal); Z79.899 Other long term (current) drug therapy
CPT/HCPCS: 99283

== ENCOUNTER 2024-11-09 09:08 | Outpatient (OUT) | payer OTHER, SELFPAY ==
--- OUTSIDE RECORDS SUMMARY | 2024-11-09 09:35 | XMS_ITS | CCD ---
Author Organization [facility] CliniSyla Care Team Providers Care Head Rose Grower Name Role Phone Jose Parker Unavailable Unavailable Gomez Hinson Unavailable Unavailable [place], Samra Lulu Unavailable Unavai lable [place], Samra Lulu Unavailable Unavai lable Gomez Hinson Unavailable Unavailable [place], Samra Lulu Unavailable Unavai lable Gomez Hinson Unavailable Unavailable Gomez Hinson Unavailable Unavailable [place], Samra Lulu Unavailable Unavai lable [place], Samra Lulu Unavailable Unavai lable [place], Samra Lulu Unavailable Unavai lable [place], Samra Lulu Unavailable Unavai lable UNKNOWN, PCP Unavailable Unavailable Gomez Hinson Unavailable Unavailable [place], Jessica Unavailable Unavailable UNKNOWN, PCP Unavailable Unavailable Gomez Hinson Unavailable Unavailable [place], Samra Lulu Unavailable Unavai lable Gomez Hinson Unavailable Unavailable [place], Samra Lulu Unavailable Unavai lable Gomez Hinson Unavailable Unavailable UNKNOWN, PCP Unavailable Unavailable Gomez Hinson Unavailable Unavailable [place], Samra Lulu Unavailable Unavai lable Shabbir Bright Unavailable DR REGAN LR V Consulting Unavailable KEVIN AYALA Admitting Unavailable KEVIN AYALA Attending Unavailable DONNA .DR HUDSON Primary Care Unavailable KEVIN AYALA Consulting Unavailable Medications Current Medications Medication Drug Class(es) Dates Sig (Normalized) Sig (Original) ibuprofen 800 mg oral tablet (2 sources) Nonsteroidal Anti-inflammatory Drug take 1 tablet by mouth three times daily at mealtime as needed Ibuprofen 800 MG 1 tablet with food or milk as needed Orally Three times a day Active predniSONE 10 mg oral tablet (1 source) Start: 12-28-2023 Prednisone Active 10 MG PO As Directed 06 02December 28, 2023 12:00am 4 tablets x 3 days, 2 tablets x 3 days, 1 tablet x 3 days Problems Active Problems Problem Classification Problem Date Documented Da te Episodic/Chronic Asthma (1 source) Unspecified asthma, uncomplicated; Translations: [UNSPECIFIED ASTHMA UNCOMPLICATED] Onset: 2 Chronic Esophageal disorders (3 sources) Gastroesophageal reflux disease; Translations: [GERD [Gastroesophageal reflux disease]] Onset: 2 Chronic Medical examination/evaluation (1 source) Encounter for examination of potential donor of organ and tissue; Translations: [Encounter for exam of potential donor of organ and tissue] Onset: 8 Episodic Other gastrointestinal disorders (1 source) Irritable bowel syndrome; Translations: [Irritable bowel syndrome without diarrhea] 12-28-2023 Chronic Residual codes; unclassified (1 source) History of clinical finding in subject; Translations: [Personal history of other specified conditions] 12-28-2023 Episodic Unclassified (2 sources) 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) Onset: 8 Unclassified (2 sources) Encounter for exam of potential donor of organ and tissue / Z00.5(ICD-10) Onset: 8 Past or Other Problems Problem Classification Problem [...] 09-25-2021 Episodic Other aftercare (1 source) Other superintendent [employer] (current) drug therapy; Translations: [[employer] CURRENT DRUG THERAPY] Onset: 08-21-2021 Episodic Other [...] RT 2Von 10-29-2021 XR wrist RT 2V [facility] Main [place] [id number] XRay Report Signed Patient: Pari Alegria MR#: [id number] 99 : 1995 Acct:[id number] Age/Sex: 26 / M ADM Date: 10/29/21 [place] [facility] [place] Type[place] [facility] Attending Dr: Shabbir Bright MD Copies to: [...] Taiwo Multani M.D.10/29/2021 12:07 PM Dictation Location: [place] [address] Transcribed By: [facility] 10/29/21 1207 Dictated By: Taiwo Multani II, MD 10/29/21 1205 Signed By: 10/29/21 1207 Normal [facility] XR wrist RT 2Von 09-25-2021 XR wrist RT 2V [facility] Main [address] [address] XRay Report Signed Patient: Pari Alegria MR#: [id number] 99 : 1995 Acct:[id number] Age/Sex: 26 / M ADM Date: 09/25/21 [place] [facility] [place] [facility] Attending Dr: Shabbir Bright MD Ordering Provider: [...] Bennett Jr., D.OServando09/25/2021 11:49 AM Dictation Location: [place] [address] Transcribed By: [facility] 09/25/21 1149 Dictated By: Good Bennett Jr, DO 09/25/21 1146 Signed By: 09/25/21 1149 [facility] XR wrist RT 2Von 09-04-2021 XR wrist RT 2V [facility] [place] [address] XRay Report Signed Patient: Pari Alegria MR#: [id number] 99 : 1995 Acct:[id number] Age/Sex: 25 / M ADM Date: 09/04/21 [place] [facility] [place]: Type[place] [facility] Attending Dr: Shabbir Bright MD Ordering Provider: [...] Taiwo Multani M.D.09/04/2021 8:59 AM Dictation Location: [place] [address] Transcribed By: [facility] 09/04/21858 Dictated By: Taiwo Multani II, MD 09/04/2157 Signed By: 09/04/21858 [facility] WEST NILE ABS- IGG, IGMon WEST NILE AB IGG <1.30 Normal [facility] Comment on above: Performed By: #### A APRIL ####[facility] [place] [address] WEST NILE AB IGM <0.90 Normal [facility] Comment on above: Result Comment: REFE RENCE [...] induced by other flavivirus infections(e.g. Dengue virus, [place] encephalitis virus)may show cross-reactivity with WNV. Performed By: #### A APRIL ####[facility] [place] [address] QUANTIFERON TB GOLDon 2017 MITOGEN NIL 5.97 IU/mL Normal [facility] Comment on above: Performed By: #### A APRIL ####[facility] [place] [address] NIL 0.48 IU/mL Normal [facility] Comment on above: Performed By: #### A APRIL ####[facility] [place] [address] QUANTIFERON TB GOLD Negative Normal Negative [facility] Comment on above: Result Comment: Nega tive test result. M. tuberculosis complexinfection unlikely. Performed By: #### A APRIL ####[facility] [place] [address] TB ANTIGEN NIL <0.00 Normal [facility] Comment on above: Result Comment: The Nil [...] years of age are limited, and the [facility]advises that caution is warranted when using the assayin children aged <5 years (MMWR 2010; 59 (RR-05):1-25).For additional information, please refer to:http://education.Bleacher [email or web address]-i/faq/QFT(This link is being provided for informational/educational purposes only). Performed By: #### A APRIL ####[facility] [place] [address] DONOR HEPATITIS B SURFACE AG on 10-10-2017 DONOR HEPATITIS B SURFACE AG Negative Normal Negative [facility] Comment on above: Result Comment: Test performed with [employer] [place] Prism HBsAg kit. Performed By: #### F EVA ####[facility] [place] [address] DONOR HEPATITIS C ABon 10-10 DONOR HEPATITIS C AB Negative Normal Negative [facility] Comment on above: Result Comment: Test performed with [place] Prism HCV kit. Performed By: #### A APRIL ####[facility] [place] [address] BA CTA ABDOMEN PELVIS WITH C ONT [...] length.Electronically signed by: CORRIE SENIOR MD Normal [facility] ABO/RH GROUP TESTon 10-09-19 18 ABO TYPE O Normal [facility] Comment on above: Performed By: #### F LAUT ####[facility] [place] [address] RH TYPE Positive Normal [facility] Comment on above: Performed By: #### F LAUT ####[facility] [place] [address] CBC AND DIFFERENTIALon 10-08 % AUTOMATED IMMATURE GRAN 0.4 % Normal 0.0 - 0.9 [facility] Comment on above: Result Comment: Perc ent differential counts (%) should be interpreted in the context of the absolute cell counts (cells/L). Performed By: #### C BCDF ####[facility] [place] [address] % NEUTROPHIL 41.1 % Normal 40.0 - 80.0 [facility] Comment on above: Performed By: #### C BCDF ####[facility] [place] [address] Basophils/100 WBC Auto (Bld) 0.04 x10E9/L Normal 0.00 - 0.10 [facility] Comment on above: Performed By: #### C BCDF ####[facility] [place] [address] Basophils/100 WBC Auto (Bld) 0.5 % Normal 0.0 - 2.0 [facility] Comment on above: Performed By: #### C BCDF ####[facility] [place] [address] Eosinophils 0.45 10*3/uL Normal 0.00 - 0.70 [facility] Comment on above: Performed By: #### C BCDF ####[facility] [place] [address] Eosinophils/100 leukocytes 6.0 % Normal 0.0 - 6.0 [facility] Comment on above: Performed By: #### C BCDF ####[facility] [place] [address] Erythrocyte distribution width Auto Ratio (RBC) 12.0 % Normal 11.5 - 14.5 [facility] Comment on above: Performed By: #### C BCDF ####[facility] [place] [address] Erythrocytes (RBC) 5.35 x10E12/L Normal 4.50 - 5.90 [facility] Comment on above: Performed By: #### C BCDF ####[facility] [place] [address] Hematocrit (HCT) 48.6 % Normal 41.0 - 52.0 [facility] [place] Comment on above: Performed By: #### C BCDF ####[facility] [place] [address] Hemoglobin mass conc (Bld) 16.1 g/dL Normal 13.5 - 17.5 [facility] Comment on above: Performed By: #### C BCDF ####[facility] [place] [address] Lymphocytes 3.21 10*3/uL Normal 1.20 - 4.80 [facility] Comment on above: Performed By: #### C BCDF ####[facility] [place] [address] Lymphocytes/100 leukocytes 42.7 % Normal 13.0 - 44.0 [facility] Comment on above: Performed By: #### C BCDF ####[facility] [place] [address] MCHC mass conc (RBC) 33.1 g/dL Normal 32.0 - 36.0 [facility] Comment on above: Performed By: #### C BCDF ####[facility] [place] [address] MCV 91 fL Normal 80 - 100 [facility] Comment on above: Performed By: #### C BCDF ####[facility] [place] [address] Monocytes 0.70 10*3/uL Normal 0.10 - 1.00 [facility] Comment on above: Performed By: #### C BCDF ####[facility] [place] [address] Monocytes/100 leukocytes 9.3 % Normal 2.0 - 10.0 [facility] Comment on above: Performed By: #### C BCDF ####[facility] [place] [address] Neutrophils 3.08 10*3/uL Normal 1.20 - 7.70 [facility] Comment on above: Performed By: #### C BCDF ####[facility] [place] [address] Nucleated erythrocytes 0.0 /100 WBC Normal 0.0-0.0 [facility] Comment on above: Performed By: #### C BCDF ####[facility] [place] [address] Platelets 221 10*3/uL Normal 150 - 450 [facility] Comment on above: Performed By: #### C BCDF ####[facility] [place] [address] WBC (Leukocytes) 7.5 10*3/uL Normal 4.4 - 11.3 [facility] [place] Comment on above: Performed By: #### C BCDF ####[facility] [place] [address] CMV IGG AND IGM ABon 018 CMV IGM AB Negative Normal NEGATIVE [facility] Comment on above: Result Comment: RESU LTS WERE OBTAINED WITH THE IMMULITE 2000 CMV IGM CHEMILUMINESCENT METHOD AND CANNOT BE INTERCHANGED WITH OTHER TESTING METHODS. Immunodeficiency may impair a CMV specific IgM response. Samples collected early in CMV infection may not demonstrate IgM sera conversion. Performed By: #### F LAAURELIANO ####[facility] [place] [address] CMV IGG AB 8.6 INDEX Abnormal [facility] Comment on above: Result Comment: RESU LTS WERE OBTAINED WITH THE IMMULITECMV IGG CHEMILUMINESCENT METHOD.THE MAGNITUDE OF THE MEASURED RESULT, ABOVETHE CUT-OFF, IS NOT INDICATIVE OF THETOTAL AMOUNT OF ANTIBODY PRESENT.NEGATIVE: < 0.9EQUIVOCAL: 0.9 - 1.0POSITIVE: >=1.1 Performed By: #### F LAAURELIANO ####[facility] [place] [address] COAGULATION SCREENon 018 aPTT 30 s Normal 25 - 36 [facility] Comment on above: Result Comment: THE APTT IS NO LONGER USED FOR MONITORING UNFRACTIONATED HEPARIN THERAPY. FOR MONITORING HEPARIN THERAPY, USE THE HEPARIN ASSAY. Performed By: #### D N2LR ####[facility] [place] [address] INR Coag RelTime (PPP) 1.0 {INR} Normal 0.9 - 1.1 [facility] Comment on above: Performed By: #### D N2LR ####[facility] [place] [address] Prothrombin time (PT) Coag time (PPP) 11.1 s Normal 9.8 - 12.7 [facility] Comment on above: Performed By: #### D N2LR ####[facility] [place] [address] COMPREHENSIVE PANELon 2017 Alanine aminotransferase (ALT) 49 U/L Normal 10 - 52 [facility] Comment on above: Result Comment: Lanette ents treated with Sulfasalazine may generate falsely decreased results for ALT. Performed By: #### D N2LR ####[facility] [place] [address] Albumin 5.1 g/dL High 3.4 - 5.0 [facility] Comment on above: Performed By: #### D N2LR ####[facility] [place] [address] Alkaline phosphatase (ALP) 85 U/L Normal 33 - 120 [facility] Comment on above: Performed By: #### D N2LR ####[facility] [place] [address] Anion gap 14 mmol/L Normal 10 - 20 [facility] Comment on above: Performed By: #### D N2LR ####[facility] [place] [address] Aspartate aminotransferase (AST) 25 U/L Normal 9 - 39 [facility] Comment on above: Performed By: #### D N2LR ####[facility] [place] [address] Bicarbonate (HCO3) 27 mmol/L Normal 21 - 32 [facility] Comment on above: Performed By: #### D N2LR ####[facility] [place] [address] Bilirubin (total) 0.8 mg/dL Normal 0.0 - 1.2 [facility] [place] Comment on above: Performed By: #### D N2LR ####[facility] [place] [address] Calcium 10.1 mg/dL Normal 8.6 - 10.6 [facility] Comment on above: Performed By: #### D N2LR ####[facility] [place] [address] Chloride 101 mmol/L Normal 98 - 107 [facility] Comment on above: Performed By: #### D N2LR ####[facility] [place] [address] Creatinine 0.83 mg/dL Normal 0.50 - 1.30 [facility] Comment on above: Performed By: #### D N2LR ####[facility] [place] [address] eGFR (non-black) mL/min/{1.73_m2} Normal >60 [facility] Comment on above: Result Comment: CALC ULATIONS OF ESTIMATED GFR ARE PERFORMED USING THE MDRD STUDY EQUATION FOR THE IDMS-TRACEABLE CREATININE METHODS. CLIN CHEM 2007;53:766-72 Performed By: #### D N2LR ####[facility] [place] [address] Glucose mass conc 100 mg/dL High 74 - 99 [facility] [place] Comment on above: Performed By: #### D N2LR ####[facility] [place] [address] Potassium molar conc 4.2 mmol/L Normal 3.5 - 5.3 [facility] Comment on above: Performed By: #### D N2LR ####[facility] [place] [address] Protein 7.5 g/dL Normal 6.4 - 8.2 [facility] Comment on above: Performed By: #### D N2LR ####[facility] [place] [address] Sodium 138 mmol/L Normal 136 - 145 [facility] Comment on above: Performed By: #### D N2LR ####[facility] [place] [address] Urea nitrogen 16 mg/dL Normal 6 - 23 [facility] Comment on above: Performed By: #### D N2LR ####[facility] [place] [address] CREAT CLEARANCEon 10-08-2017 Creatinine 182 mL/min High 70 - 135 [facility] Comment on above: Performed By: #### Lorena VELASQUEZ ####[facility] [place] [address] CREATININE,URINE 77.9 mg/dL Normal [facility] Comment on above: Performed By: #### F LAUT ####[facility] [place] [address] URINE VOLUME 2723 mL Normal [facility] Comment on above: Performed By: #### F LAUT ####[facility] [id number] Creatinine 0.81 mg/dL Normal 0.50 - 1.30 [facility] Comment on above: Performed By: #### F LAUT ####[facility] [id number] eGFR (non-black) mL/min/{1.73_m2} Normal >60 [facility] Comment on above: Result Comment: CALC ULATIONS OF ESTIMATED GFR ARE PERFORMED USING THE MDRD STUDY EQUATION FOR THE IDMS-TRACEABLE CREATININE METHODS. CLIN CHEM 2007;53:766-72 Performed By: #### F LAUT ####[facility] [id number] COLLECTION PERIOD 24 hr Normal [facility] [place] Comment on above: Performed By: #### F LAUT ####[facility] [id number] DRUG SCREEN,URINEon 10-09-19 18 AMPHETAMINE SCREEN,U Negative Normal NEGATIVE [facility] Comment on above: Result Comment: CUTO FF LEVEL: 500 NG/ML Cross-reactivity has been reported with high concentrations of the following drugs: buproprion, chloroquine, chlorpromazine, ephedrine, mephentermine, fenfluramine, phentermine, phenylpropanolamine, pseudoephedrine, and propranolol. Performed By: #### D N2LR ####[facility] [id number] BARBITURATES SCREEN,U Negative Normal NEGATIVE [facility] Comment on above: Result Comment: CUTO FF LEVEL: 200 NG/ML Performed By: #### D N2LR ####[facility] [id number] BENZODIAZEPINES SCREEN,U Negative Normal NEGATIVE [facility] Comment on above: Result Comment: CUTO FF LEVEL: 200 NG/ML Performed By: #### D N2LR ####[facility] [place] [address] CANNABINOIDS SCREEN,U Positive Abnormal NEGATIVE [facility] Comment on above: Result Comment: CUTO FF LEVEL: 50 NG/ML Performed By: #### D N2LR ####[facility] [place] [address] COCAINE METABOLITE SCREEN,U Negative Normal NEGATIVE [facility] Comment on above: Result Comment: CUTO FF LEVEL: 150 NG/ML Performed By: #### D N2LR ####[facility] [place] [address] DRUG SCREEN COMMENT SEE BELOW Normal [facility] Comment on above: Result Comment: Drug screen results are presumptive and should not be used to assesscompliance with prescribed medication. [facility] the [facility] to add-on definitive confirmatory testing if clinicallyindicated..Toxicology [...] laboratory medicaldirectors. Performed By: #### D N2LR ####[facility] [id number] METHADONE SCREEN,U Negative Normal NEGATIVE [facility] Comment on above: Result Comment: CUTO FF LEVEL: 150 NG/ML The metabolite R-sycou-gaznrqnssyqtjl (LAAM) is not detected by this method in concentrations that would be found in the urine of patients on LAAM therapy. Performed By: #### D N2LR ####[facility] [id number] OPIATES SCREEN,U Negative Normal NEGATIVE [facility] Comment on above: Result Comment: CUTO FF LEVEL: 300 NG/ML The opiate screen does not detect fentanyl, meperidine, or tramadol. Oxycodone is not consistently detected (refer to Oxycodone Screen, Urine result). Performed By: #### D N2LR ####[facility] [place] [address] OXYCODONE SCREEN,U Negative Normal NEGATIVE [facility] Comment on above: Result Comment: CUTO FF LEVEL: 100 NG/ML This test will accurately detect both oxycodone and oxymorphone. Performed By: #### D N2LR ####[facility] [place] [address] PCP SCREEN,U Negative Normal NEGATIVE [facility] Comment on above: Result Comment: CUTO FF LEVEL: 25 NG/ML Cross-reactivity has been reported with dextromethorphan. Performed By: #### D N2LR ####[facility] [place] [address] EBV PANELon 10-08-2017 VCA IGM ANTIBODY Negative Normal NEGATIVE [facility] Comment on above: Performed By: #### F LAUT ####[place] [id number] [place] [address] EBV EA-D IGG ANTIBODY Negative Normal NEGATIVE [facility] Comment on above: Performed By: #### F LAUT ####[facility] [place] [address] EBV INTERPRETATION SEE BELOW Normal [facility] Comment on above: Result Comment: . EB V INTERPRETATION CHART. VCA-IGG VCA-IGM NA-IGG EA-IGG. PRIMARY ACUTE +/- +/- - +/-LATE ACUTE + +/- +/- +/-RECOVERING + - - +PREVIOUS INFECTION + - +/- - Performed By: #### F LAUT ####[facility] [place] [address] EBV NA-1 IGG ANTIBODY Positive Abnormal NEGATIVE [facility] Comment on above: Performed By: #### F LAUT ####[facility] [place] [address] VCA IGG ANTIBODY Positive Abnormal NEGATIVE [facility] Comment on above: Performed By: #### F LAUT ####[facility] [place] [address] GLUCOSE,FASTINGon 10-08-2017 Glucose mass conc 99 mg/dL Normal 74 - 99 [facility] [place] Comment on above: Result Comment: INCR EASED RISK FOR DIABETES 100-125 mg/dL DIAGNOSTIC OF DIABETES >=126 mg/dL Diagnosis of diabetes mellitus requires confirmation of an abnormal result by repeat testing. [employer], Diabetes Care; 33(Supp 1)May 2009. Performed By: #### G LUCF ####[facility] [place] [address] HEMOGLOBIN A1Con 10-08-2017 Glucose mass conc 94 mg/dL Normal [facility] [place] Comment on above: Performed By: #### F LAUT ####[facility] [place] [address] Hemoglobin A1c/Hemoglobin.total mass fraction (Bld) 4.9 % Normal [facility] Comment on above: Result Comment: Diag nosis of Diabetes-Adults Non-Diabetic: < or = 5.6% Increased risk for developing diabetes: 5.7-6.4% Diagnostic of diabetes: > or = 6.5%. Monitoring of Diabetes Age (y) Therapeutic Goal (%) Adults: >18 <7.0 Pediatrics: 13-18 <7.5 7-12 <8.0 0- 6 7.5-8.5 [employer]. Diabetes Care 33(S1), May 2009. Performed By: #### F LAUT ####[facility] [place] [address] HEPATITIS B CORE AB-TOTALon 10-08-2017 HEP. B CORE AB-TOTAL NONREACTIVE Normal NONREACTIVE [facility] Comment on above: Result Comment: Lanette ents receiving more than 5 mg/day of biotin may have interference in test results. A sample should be taken no sooner than eight hours after previous dose. Contact [phone] for additional information. Performed By: #### D N2LR ####[facility] [place] [address] Lab Specimen Source Normal [facility] Comment on above: Performed By: #### D N2LR ####[facility] [place] [address] HEPATITIS B SURF ABon 2017 HEP B SURF AB 5.3 mIU/mL Normal <10 [facility] Comment on above: Result Comment: INTE RPRETIVE CRITERIA:<10 mIU/mL....NONREACTIVE>=10 mIU/mL...REACTIVE. Patients receiving more than 5 mg/day of biotin may have interference in test results. A sample should be taken no sooner than eight hours after previous dose. Contact [phone] for additional information. Performed By: #### D N2LR ####[facility] [place] [address] LIPID PANEL (CORONARY RISK 2 )on 10-08-2017 Cholesterol 188 mg/dL Normal 0 - 199 [facility] Comment on above: Result Comment: . AG [...] Metamizole dosing. Performed By: #### D N2LR ####[facility] [place] [address] Cholesterol in VLDL mass conc 27 mg/dL Normal 0 - 40 [facility] Comment on above: Performed By: #### D N2LR ####[facility] [place] [address] Cholesterol to HDL Ratio 3.4 {ratio} Normal [facility] Comment on above: Result Comment: REF VALUESDESIRABLE < 3.4HIGH RISK > 5.0 Performed By: #### D N2LR ####[facility] [place] [address] HDL Cholesterol 54.7 mg/dL Normal [facility] Comment on above: Result Comment: . AG E VERY LOW LOW NORMAL HIGH 0-19 Y < 35 < 40 40-45 ---- 20-24 Y ---- < 40 >45 ---- >24 Y ---- < 40 40-60 >60. Performed By: #### D N2LR ####[facility] [place] [address] LDL Cholesterol 107 mg/dL Normal 0 - 119 [facility] Comment on above: Result Comment: . LIZZETTE MOULTON AGE DESIRABLE OPTIMAL HIGH HIGH VERY HIGH 0-19 Y 0 - 109 --- 110-129 >/= 130 ---- 20-24 Y 0 - 119 --- 120-159 >/= 160 ---- >24 Y 0 - 99 100-129 130-159 160-189 >/=190. Performed By: #### D N2LR ####[facility] [place] [address] NON-HDL CHOLESTEROL 133 mg/dL Normal 0 - 149 [facility] Comment on above: Result Comment: AGE DESIRABLE BORDERLINE HIGH HIGH VERY HIGH 0-19 Y 0 - 119 120 - 144 >/= 145 >/= 160 20-24 Y 0 - 149 150 - 189 >/= 190 ---- >24 Y 30 MG/DL ABOVE LDL CHOLESTEROL GOAL. Performed By: #### D N2LR ####[facility] [place] [address] Triglyceride 133 mg/dL Normal 0 - 149 [facility] Comment on above: Result Comment: . AG [...] Metamizole dosing. Performed By: #### D N2LR ####[facility] [place] [address] PHOSPHORUSon 10-08-2017 Phosphate 2.8 mg/dL Normal 2.5 - 4.9 [facility] Comment on above: Result Comment: The performance characteristics of phosphorus testing in heparinized plasma have been validated by the individual laboratory site where testing is performed. Testing on heparinized plasma is not approved by the FDA; however, such approval is not necessary. Performed By: #### D N2LR ####[facility] [place] [address] SYPHILIS IGGon 10-08-2017 SYPHILIS IGG NON REACTIVE Normal NONREACTIVE [facility] Comment on above: Result Comment: Lanette ents receiving more than 5 mg/day of biotin may have interference in test results. A sample should be taken no sooner than eight hours after previous dose. Contact [phone] for additional information. Performed By: #### D N2LR ####[facility] [place] [address] TH CHEST 2 VIEW PA AND LATon [...] Electronically signed by: VIRAJ ROJAS MD Normal [facility] TOTAL PROTEIN, URINE SPOTon 10-08-2017 CREATININE,URINE 147.0 mg/dL Normal [facility] [place] Comment on above: Performed By: #### D N2LR ####[facility] [place] [address] T. PROTEIN/CREAT RATIO 0.08 mg/mg Creat Normal [facility] Comment on above: Performed By: #### D N2LR ####[facility] [place] [address] TOTAL PROT,URINE SPOT 12 mg/dL Normal 0 - 12 [facility] Comment on above: Performed By: #### D N2LR ####[facility] [place] [address] URIC ACIDon 10-08-2017 Urate 5.4 mg/dL Normal 4.0 - 7.5 [facility] Comment on above: Result Comment: Angi puncture immediately after or during the administration of Metamizole may lead to falsely low results. Testing should be performed immediately prior to Metamizole dosing. Performed By: #### D N2LR ####[facility] [place] [address] URINALYSISon 10-08-2017 Bilirubin (total) Negative Normal NEGATIVE [facility] [place] Comment on above: Performed By: #### F LAUT ####[facility] [place] [address] BLOOD Negative Normal NEGATIVE [facility] Comment on above: Performed By: #### F LAUT ####[facility] [place] [address] Glucose mass conc Negative Normal NEGATIVE [facility] [place] Comment on above: Performed By: #### F LAUT ####[facility] [place] [address] pH of blood 7.0 [pH] Normal 5.0 - 8.0 [facility] Comment on above: Performed By: #### F LAUT ####[facility] [place] [address] Protein Negative Normal NEGATIVE [facility] Comment on above: Performed By: #### F LAUT ####[facility] [place] [address] Urine, appearance CLEAR Normal CLEAR [facility] [place] Comment on above: Performed By: #### F LAUT ####[facility] [place] [address] Urine, color YELLOW Normal STRAW,YELLOW [facility] Comment on above: Performed By: #### F LAUT ####[facility] [place] [address] Urine, ketones presence Negative Normal NEGATIVE [facility] Comment on above: Performed By: #### F LAUT ####[facility] [place] [address] Urine, leukocyte esterase presence Negative Normal NEGATIVE [facility] Comment on above: Performed By: #### F LAUT ####[facility] [place] [address] Urine, nitrite presence Negative Normal NEGATIVE [facility] Comment on above: Performed By: #### F LAUT ####[facility] [place] [address] Urine, specific gravity 1.018 Normal 1.005 - 1.035 [facility] Comment on above: Performed By: #### F LAUT ####[facility] [place] [address] Urine, urobilinogen <2.0 Normal 0.0 - 1.9 [facility] Comment on above: Performed By: #### F LAUT ####[facility] [place] [address] URINE CULTURE,BACTERIALon URINE CULTURE,BACTERIAL PATIENT: PARI ALEGRIA LOCATION: [facility] BILL#: [id number] : 89 AGE: SEX: M ORDERED BY: LUCY FLEMING: URINE COLLECTED: 10/08/17 08:07ANTIBIOTICS AT [place]LLY.: RECEIVED : 10/08/17 12:26SITE: Clean Catch/Voided R E S U L T S URINE CULTURE,BACTERIAL FINAL 10/09/17 06:52 NO SIGNIFICANT GROWTH. Normal [facility] Comment on above: Performed By: #### F EVA ####[facility] [place] [address] HLA-A,B,C LRon 09-10-2017 HLA-A LOCUS LR TYPE SEE COMMENT Normal [facility] Comment on above: Result Comment: HLA- A LOCUS, LOW RESOLUTION TYPE SEE SEPARATE REPORT. Performed By: #### D N1LR ####[facility] [place] [address] HLA-B LOCUS LR TYPE SEE COMMENT Normal [facility] Comment on above: Result Comment: HLA- B LOCUS, LOW RESOLUTION TYPE SEE SEPARATE REPORT. Performed By: #### D N1LR ####[facility] [place] [address] HLA-C LOCUS LR TYPE SEE COMMENT Normal [facility] Comment on above: Result Comment: HLA- C LOCUS, LOW RESOLUTION TYPE SEE SEPARATE REPORT. Performed By: #### D N1LR ####[facility] [place] [address] HLA-DPB1 HR TYPINGon 018 HLA-DPB1 HR TYPING SEE COMMENT Normal [facility] Comment on above: Result Comment: HLA- DPB1 HIGH RESOLUTION TYPING SEE SEPARATE REPORT. Performed By: #### D PBHR ####[facility] [place] [address] HLA-DQB1 HR TYPINGon 018 HLA-DQB1 HR TYPING SEE COMMENT Normal [facility] Comment on above: Result Comment: HLA- DQB1 HIGH RESOLUTION TYPING SEE SEPARATE REPORT. Performed By: #### D QBHR ####[facility] [place] [address] HLA-DRB1/3/4/5 AND DQB1 LR T YPINGon 09-10-2017 HLA-DRB1/3/4/5 & DQB1 LR TYPING SEE COMMENT Normal [facility] Comment on above: Result Comment: HLA- DRB1/3/4/5 AND DQB1 LOW RESOLUTION TYPING SEE SEPARATE REPORT. Performed By: #### D N2LR ####[facility] [place] [address] ABO/RH GROUP TESTon 09-05-19 18 ABO TYPE O Normal [facility] Comment on above: Performed By: #### A APRIL ####[facility] [place] [address] RH TYPE Positive Normal [facility] Comment on above: Performed By: #### A APRIL ####[facility] [id number] AUTOCROSSMATCH, FLOWon 09-04 AUTOCROSSMATCH, FLOW Canceled Normal [facility] Comment on above: Order Comment: TEST AUTOCROSSMATCH, FLOW WAS CANCELLED, 09/04/2017 14:53 ?WRONG VISIT USED.. Performed By: #### F EVA ####[facility] [id number] HLA-A,B,C LRon 09-04-2017 HLA-A LOCUS LR TYPE Canceled Normal [facility] Comment on above: Order Comment: TEST HLA-A,B,C LR WAS CANCELLED, 09/04/2017 14:53 ?WRONG VISIT USED.. Performed By: #### D N1LR ####[facility] [place] [address] HLA-B LOCUS LR TYPE Canceled Normal [facility] Comment on above: Order Comment: TEST HLA-A,B,C LR WAS CANCELLED, 09/04/2017 14:53 ?WRONG VISIT USED.. Performed By: #### D N1LR ####[facility] [id number] HLA-C LOCUS LR TYPE Canceled Normal [facility] Comment on above: Order Comment: TEST HLA-A,B,C LR WAS CANCELLED, 09/04/2017 14:53 ?WRONG VISIT USED.. Performed By: #### D N1LR ####[facility] [place] [address] HLA-DRB1/3/4/5 AND DQB1 LR T YPINGon 09-04-2017 HLA-DRB1/3/4/5 & DQB1 LR TYPING Canceled Normal [facility] Comment on above: Order Comment: TEST HLA-DRB1/3/4/5 AND DQB1 LR TYPING WAS CANCELLED, 09/04/2017 14:53 ?WRONGVISIT USED.. Performed By: #### D N2LR ####[facility] [place] [address] Vital Signs Date Time Vital Sign Value Performing Clinician Facility 12-28-2023 10:54-0400 Body height 175.26 cm [facility] 12-28-2023 10:54-0400 Body mass index (BMI) [Ratio] 36.3 kg/m2 [facility] 12-28-2023 10:54-0400 Body temperature 98.7 [degF] [facility] 12-28-2023 10:54-0400 Body weight 111.81 kg [facility] 12-28-2023 10:54-0400 Diastolic blood pressure 100 mm[Hg] [facility] 12-28-2023 10:54-0400 Heart rate 94 /min [facility] 12-28-2023 10:54-0400 SaO2% (BldA) [Mass fraction] 99 % [facility] 12-28-2023 10:54-0400 Systolic blood pressure 169 mm[Hg] [facility] 09-25-2021 09:45-0400 Body height 175.26 cm Shabbir Bright Other [facility] Other 09-25-2021 09:45-0400 Body mass index (BMI) [Ratio] 33.81 kg/m2 Shabbir Bright Other [facility] Other 09-25-2021 09:45-0400 Body weight 103.87 kg Shabbir Bright Other [facility] Other Encounters Encounter Date Encounter Type Care Provider Facility Start: 12-28-2023 End: 12-28-2023 ambulatory [facility] Work Phone: Start: 12-28-2023 End: 12-28-2023 Patient encounter procedure [facility] Work Phone: Start: 09-25-2021 End: 09-25-2021 ambulatory Shabbir Olexa Other [facility] Other Start: 09-25-2021 Postop follow up visit related to original px Shabbir Olexa [facility] Start: 09-04-2021 End: 09-04-2021 ambulatory Shabbir Olexa Other [facility] Other Start: 09-04-2021 Postop follow up visit related to original px Shabbir Olexa [facility] Start: 08-20-2021 End: 08-20-[address] REGAN LR Facility: Start: 10-09-2017 Ambulatory PCP UNKNOWN Facility:U Start: 10-09-2017 Ambulatory [facility] Start: 10-09-2017 Ambulatory [facility] Start: 10-08-2017 Ambulatory Sahra Hong y:[facility] Start: 10-08-2017 Ambulatory [facility] Start: 10-08-2017 Ambulatory Gomez Akins ility:[facility] Start: 10-08-2017 Ambulatory [facility] Start: 09-10-2017 Ambulatory Jose Morai ty:[facility] Payers Date Payer Category Payer Unknown [id number] [id number] [id number] 1960 Unknown [id number] 1960 Unknown [id number] Medicaid [employer] [id number] Self-pay Unknown [id number] Unknown [employer] [id number] Social History Date Type Detail Facility Unknown if ever smoked [facility] Other Sex Assigned At Sex Assigned At Bir th [facility] Other Start: 12-28-2023 Tobacco smoking status NHIS Never smoked tobacco (finding) [facility] Start: 1995 Sex Assigned At Male F [facility] Evaluation note 09-25-2021 Note Date & Type [...] will continue off of work until 11/02/2021. [facility] Other Evaluation note 09-04-2021 Note Date & Type Note Facility 09-04-2021 Evaluation note Encounter Date Diagnosis Assessment Notes Aug, Other closed fracture of distal end of right radius with routine healing, subsequent encounter (ICD-10 - S52.591D) Xrays were reviewed with patient in detail. Patient instructed to work on gentle motion exercises. Continue use of brace. Patient will continue off of work for now. [facility] Other Clinical Note 08-20-2021 Note Date & [...] by: REGAN LR Date: 2021-08-20 13:14 [facility] Evaluation note Note Date & Type Note Facility Evaluation note No assessment information availa ble [facility] Work Phone: History general Narrative - Reported Note Date & Type Note Facility History general Narrative - Reported Type Surgical History cholecystectomy [facility] [employer] Other Summary Purpose Family History Relationship Condition Age at Onset Recorded Date/T leora mother Hypertension Unknown Advance Directives Advance Directive Response Recorded Date/ Time Advance Directives No September 04, 2 022 3:11pm Chief Complaint and Reason for Visit Chief Complaint Rash on face, exposu re to poison zenobia Additional Source Comments (unrecognized sect ion and content) No Status Records FoundNo Status Records FoundNo Status Records Found INFORMATION SOURCE (unrecogn ized section and content) DATE CREATED AUTHOR 11/09/2017 [facility] DATE CREATED AUTHOR AUTHOR'S ORGANIZ ATION 11/11/2021 [facility] DATE CREATED AUTHOR AUTHOR'S ORGANIZ ATION 08/07/2022 [facility] REASON FOR VISIT (unrecogniz ed section and content) Recheck Right WristRecheck R ight Wrist Care Teams (unrecognized sec tion and content) Team Status: Active Member Role Status Dates Gomez Hinson MD Primary Care Provider Active Team Status: Inactive Member Role Status Dates Gomez Hinson MD Primary Care Provider Active Start: December 28, 2023 End: December 28, 2023 Leida Danielle APRN Attending Provider Active Start: December 28, 2023 End: December 28, 2023 Goals (unrecognized section and content) Goals may be documented in a n alternate section FOR RECORDS PERTAINING TO PATIENTS WHO ARE [...] BE BASED ON THE PRIMARY CLINICAL RECORDS. [facility] [employer] [facility]. provides no warranty or guarantee of the accuracy or completeness of information in this document.
[2024-11-09 09:36] LABS: Basophils Percent Auto 0.3 % (0.2-2.0); Eosinophils Absolute Auto 0.4 10^3/uL (0.0-0.7); Eosinophils Percent Auto 3.6 % (0.9-7.0); Hemoglobin 15.6 g/dL (14.0-18.0); Immature Granulocytes Abs Auto 0.04 10^3/uL (0.00-0.03); Immature Granulocytes Pct Auto 0.4 % (0.0-0.5); Lymphocytes Absolute Auto 3.2 10^3/uL (1.2-3.8); Lymphocytes Percent Auto 30.4 % (20.5-60.0); Mean Corpuscular HGB Conc 33.9 g/dL (29.9-35.2); Mean Corpuscular Hemoglobin 30.7 pg (25.9-34.0); Mean Corpuscular Volume 90.6 fL (80.0-94.0); Mean Platelet Volume 10.5 fL (9.5-13.5); Monocytes Percent Auto 9.6 % (1.7-12.0); Neutrophils Absolute Auto 5.9 10^3/uL (1.4-6.5); Neutrophils Percent Auto 55.7 % (43.0-75.0); Platelet Count 239 10^3/uL (150-450); Red Blood Count 5.08 10^6/uL (4.70-6.10); Red Cell Distribution Width 12.8 % (11.0-15.0); White Blood Count 10.6 10^3/uL (4.0-11.0)
[2024-11-09 09:47] LABS: Estimated Average Glucose 108 mg/dL; Glycohemoglobin A1C 5.4 % (4.5-6.2)
[2024-11-09 10:47] LABS: Alanine Aminotransferase 83 U/L (16-63); Albumin Globulin Ratio 1.1; Alkaline Phosphatase 106 U/L (46-116); Anion Gap 12.4; Aspartate Amino Transferase 29 U/L (15-37); Bilirubin Total 0.5 mg/dL (0.2-1.0); Calcium 9.1 mg/dL (8.5-10.1); Carbon Dioxide 29.6 mmol/L (21.0-32.0); Chloride 104 mmol/L (98-107); Estimated GFR (African America >60 (>=60 mL/min/1.73m^2); Estimated GFR (Non-African Ame >60 (>=60 mL/min/1.73m^2); Free T3 2.93 pg/mL (2.18-3.98); Globulin 3.7 g/dL; Glucose 129 mg/dL (74-106); Sodium 142 mmol/L (136-145); Total Protein 7.7 g/dL (6.4-8.2); Uric Acid 4.9 mg/dL (3.5-7.2)
== END 2024-11-09 09:09 | disposition home or self-care (01) ==
LOC: LAB 09:13
PROVIDERS: PCP Family Medicine; Visit Provider Family Medicine
DX: M25.572 Pain in left ankle and joints of left foot (principal); R73.09 Other abnormal glucose; R53.83 Other fatigue
CPT/HCPCS: 36415; 80053; 83036; 84436; 84443; 84481; 84550; 85025